=== PATIENT | male | born 1995 | race American Indian/Alaskan Native ===

== ENCOUNTER 2018-11-28 12:12 | Emergency (ER) | payer SELFPAY ==
[2018-11-28 12:22] VITALS: BP 105/55
--- NOTE | 2018-11-28 12:25 | Event Note ---
ED Screening Note Date of service: 11/28/18 Time: 12:21 ED Screening Note: This is a 23 y.o. M. that presents to the ER with rash to trunk, hands, feet, and penile discharge for 1 week. Reports 1 female partner. States rash started on hands and progressed to torso and feet. Reports penile discharge started yesterday. - pelvic pain, back pain, testicular pain/swelling, fever, or cough This initial assessment/diagnostic orders/clinical plan/treatment(s) is/are subject to change based on patients health status, clinical progression and re- assessment by fellow clinical providers in the ED. Further treatment and workup at subsequent clinical providers discretion. Patient/guardian urged not to elope from the ED as their condition may be serious if not clinically assessed and managed. Initial orders include:
[2018-11-28] MEDS ORDERED: LIDOCAINE-MPF (1%) 10 MG/1 ML VIAL 5 ML INFILTRATI ONE (13:35)
[2018-11-28] MEDS ORDERED: PENICILLIN G BENZATHINE 1.2 MILLION UNIT/2 ML INJ IM ONE (13:35)
[2018-11-28] MEDS ORDERED: AZITHROMYCIN 250 MG TAB PO STA (13:35)
--- NOTE | 2018-11-28 13:44 | Emergency Department Report ---
<LORETTA KEYES - Last Filed: 11/28/18 13:37> ED Male HPI - General Chief complaint: Skin Rash Stated complaint: CHECK UP Time Seen by Provider: 11/28/18 12:20 Source: patient Mode of arrival: Ambulatory Limitations: No Limitations - History of Present Illness Initial comments: 23-year-old male presents department complaining of yellow penile discharge with burning and also the emergence of a macular, circular rash to his torso on the palms of his hands for the last few days. Reports no joint pain or headaches, no fevers, chills or sweats. No hematuria noted. No testicular pain or swelling MD Complaint: penile discharge, dysuria Location: penis Radiation: none Severity: mild Quality: burning Consistency: constant Worsens with: urination discharge. denies: urinary retention, blood in urine - Related Data Sexually active: Yes Allergies Allergy/AdvReac Type Severity Reaction Status Date / Time No Known Allergies Allergy Verified 11/28/18 12:22 ED Review of Systems Comment: All other systems reviewed and negative ED Past Medical Hx - Past Medical History Previous Medical History?: No - Surgical History Past Surgical History?: Yes Additional Surgical History: skin graft - Social History Smoking Status: Current Every Day Smoker Substance Use Type: None ED Physical Exam - General Limitations: No Limitations General appearance: alert, in no apparent distress - Head Head exam: Present: atraumatic, normocephalic - Eye Eye exam: Present: normal appearance - ENT ENT exam: Present: mucous membranes moist - Neck Neck exam: Present: normal inspection - Respiratory Respiratory exam: Present: normal lung sounds bilaterally. Absent: respiratory distress - Cardiovascular Cardiovascular Exam: Present: regular rate, normal rhythm. Absent: systolic murmur, diastolic murmur, rubs, gallop - GI/Abdominal GI/Abdominal exam: Present: soft, normal bowel sounds - Rectal Rectal exam: Present: deferred - exam: Present: urethral discharge External exam: Present: normal external exam - Extremities Exam Extremities exam: Present: normal inspection - Back Exam Back exam: Present: normal inspection - Neurological Exam Neurological exam: Present: alert, oriented X3, CN II-XII intact, normal gait. Absent: abnormal gait, motor sensory deficit - Psychiatric Psychiatric exam: Present: normal affect, normal mood - Skin Skin exam: Present: warm, dry, intact, normal color, other (neck torso as well. No lymphangitis or cellulitis noted. No posterior). Absent: rash ED Disposition Clinical Impression: STD (male) Disposition: DC-01 TO HOME OR SELFCARE Is pt being admited?: No Does the pt Need Aspirin: No Condition: Stable Instructions: Chlamydia Infection (ED), Sexually Transmitted Diseases (ED), Syphilis (ED), Safe Sex (ED) Additional Instructions: Please follow up with her department as we discussed for for evaluation of an STD panel. Also be sure to follow-up with the hospital for your results on the tests that are provided today. Contact medical records for the findings Referrals: [facility] [Provider Group] - 3-5 Days [facility] [Outside] - 3-5 Days <AYO MCKEON - Last Filed: 11/28/18 16:01> ED Review of Systems ROS: Stated complaint: CHECK UP Other details as noted in HPI ED Course Vital Signs 11/28/18 12:20 Temperature 97.8 F Pulse Rate 63 Respiratory 18 Rate Blood Pressure 105/55 [Right] O2 Sat by Pulse 99 Oximetry ED Medical Decision Making - Medical Decision Making rpr sent and positive (resulted after pt d/c) pt empirically treated with Bicillin (for syphilis), Rocephin, azithromycin Critical care attestation.: If time is entered above; I have spent that time in minutes in the direct care of this critically ill patient, excluding procedure time.
== END 2018-11-28 14:12 | disposition home or self-care (01) ==
LOC: ED 12:12
DX: A64 Unspecified sexually transmitted disease (principal); F17.200 Nicotine dependence, unspecified, uncomplicated
CPT/HCPCS: 36415; 86592; 86593; 86780; 96372; 99283; J0561; J0696

== ENCOUNTER 2019-11-16 12:46 | Emergency (ER) | payer SELFPAY ==
[2019-11-16 12:54] VITALS: BP 123/77
--- NOTE | 2019-11-16 14:04 | Emergency Department Report ---
Chief Complaint: Urogenital-Male Stated Complaint: STD-BLEEDING Time Seen by Provider: 11/16/19 14:03 - HPI History of Present Illness: Patient is a 24-year-old male presents emergency room with complaints of a "STD." He states that he has had dysuria and penile discharge for 2 weeks. He denies any fever, nausea, vomiting, diarrhea, abdominal pain, back pain, pain or swelling in the testicles. He denies any past medical history. No allergies to medications. Vitals are normal Patient is presenting for STD He denies any fever, nausea, vomiting, diarrhea, abdominal pain, back pain, pain or swelling in the testicles. Patient will be given referrals to clinics and the health department Advised patient Please follow-up with the health department or clinic for full STD panel. Please have any partner tested and treated as well. Please avoid sexual intercourse. In the future please practice safe sex. Return to emergency room for any new or worsening symptoms. Medical screening performed and there is no threat to life or limb at this time - Exam Vital Signs: Vital Signs 11/16/19 12:53 Temperature 98 F Pulse Rate 73 Respiratory 18 Rate Blood Pressure 123/77 [Right] O2 Sat by Pulse 97 Oximetry MSE screening note: Focused history and physical exam performed. Due to findings the following was ordered: ED Disposition for MSE Clinical Impression: Concern about STD in male without diagnosis Disposition: Z-07 MED SCREENING EXAM-LEFT Is pt being admited?: No Does the pt Need Aspirin: No Condition: Stable Instructions: Sexually Transmitted Diseases (ED), Safe Sex (ED) Additional Instructions: Please follow-up with the health department or clinic for full STD panel. Please have any partner tested and treated as well. Please avoid sexual intercourse. In the future please practice safe sex. Return to emergency room for any new or worsening symptoms. [address] Address: [address] [place] [id number] [facility] - [facility] Days [facility] [Provider Group] - 2-3 Days Time of Disposition: 14:03 Print Language: SERBIAN
== END 2019-11-16 14:05 | disposition left against medical advice (07) ==
LOC: ED 12:46
DX: R30.0 Dysuria (principal); Z53.21 Procedure and treatment not carried out due to patient leaving prior to being seen by health care provider

== ENCOUNTER 2019-12-02 19:23 | Emergency (ER) | payer SELFPAY ==
[2019-12-02 19:54] VITALS: BP 119/64
== END 2019-12-02 21:10 | disposition left against medical advice (07) ==
LOC: ED 19:23
DX: J02.9 Acute pharyngitis, unspecified (principal); Z53.21 Procedure and treatment not carried out due to patient leaving prior to being seen by health care provider